=== PATIENT | male | born 1970 | race African-American/Black ===

== ENCOUNTER 2020-07-01 21:40 | Emergency (ER) | payer MEDICAID | END 2020-07-01 22:25 | disposition home or self-care (01) | LOC: BURERS 21:40 | DX: T46.5X1A Poisoning by other antihypertensive drugs, accidental (unintentional), initial encounter (principal); I10 Essential (primary) hypertension; Z86.73 Personal history of transient ischemic attack (TIA), and cerebral infarction without residual deficits; Z79.899 Other long term (current) drug therapy | CPT/HCPCS: 99281 ==

== ENCOUNTER 2021-01-18 15:53 | Emergency (ER) | payer OTHER | END 2021-01-18 16:40 | disposition home or self-care (01) | LOC: BURERS 15:53 | DX: S91.352A Open bite, left foot, initial encounter (principal); I10 Essential (primary) hypertension; Z79.899 Other long term (current) drug therapy; W54.0XXA Bitten by dog, initial encounter | CPT/HCPCS: 99283 ==